=== PATIENT | male | born 1970 | race Caucasian/White ===

== ENCOUNTER 2020-03-21 10:35 | Observation (INO) | payer BC ==
[2020-03-21 11:15] LABS: Absolute Lymphocytes (CBC) 3.1 K/uL (0.7-4.9); Basophils % 0.6 % (0-1.3); Hematocrit 46.5 % (39.6-49.0); Lymphocytes % 39.9 % (15.3-44.8); MPV 8.8 fL (7.6-11.3); RBC Red Blood Cell Count 5.18 M/uL (4.33-5.43)
[2020-03-21 11:31] LABS: ALT/SGPT 50 U/L (12-78); AST/SGOT 34 U/L (15-37); Albumin 4.1 g/dL (3.4-5.0); Alkaline Phosphatase 103 U/L (45-117); BUN Blood Urea Nitrogen 19 mg/dL (7-18); Bicarbonate 24 mmol/L (21-32); Bilirubin Direct 0.2 mg/dL (0-0.2); Bilirubin Total 0.5 mg/dL (0.2-1.0); Glucose Level 93 mg/dL (74-106); Lipase 75 U/L (73-393); Potassium 4.1 mmol/L (3.5-5.1); Protein, Total 8.4 g/dL (6.4-8.2); Sodium Level 141 mmol/L (136-145); Troponin (Emerg Dept Use Only) < 0.02 ng/mL (0.0-0.045)
[2020-03-21] MEDS ORDERED: ASPIRIN 81 MG CHEWABLE TABLET ONE (11:33)
--- NOTE | 2020-03-21 11:41 | RAD REPORT ---
EXAM DESCRIPTION: Krystle Single View03/21/2020 11:21 am CLINICAL HISTORY: Chest pain COMPARISON: November 2019 FINDINGS: The lungs appear clear of acute infiltrate. The heart is normal size IMPRESSION: No acute abnormalities displayed
--- NOTE | 2020-03-21 12:21 | ER ---
Nurse's Notes [facility] Name: Toby Murphy Age: 49 yrs Sex: Male : 1970 Arrival Date: 03/21/2020 Time: 10:38 Bed 5 Private MD: Gil Drake Diagnosis: Essential (primary) hypertension;Other chest pain;Pure hypercholesterolemia Presentation: 03/21 10:41 Chief complaint: Substernal chest pain that woke him from sleep 3 hours ago. Pain hb radiates to upper back. Denies SOB/nausea/cough. Coronavirus screen: Proceed with normal triage. Ebola Screen: No symptoms or risks identified at this time. Initial Sepsis Screen: Does the patient meet any 2 criteria? No. Patient's initial sepsis screen is negative. Does the patient have a suspected source of infection? No. Patient's initial sepsis screen is negative. Risk Assessment: Do you want to hurt yourself or someone else? Patient reports no desire to harm self or others. Onset of symptoms was March 21, 2020. 10:41 Method Of Arrival: Ambulatory hb 10:41 Acuity: LIVIA 3 hb Historical: - Allergies: 10:44 No Known Allergies; hb - Home Meds: 10:44 Crestor 10 mg Oral tab 1 tab once daily [Active]; lisinopril 20 mg Oral tab 1 tab once hb daily [Active]; Zoloft Oral [Active]; Dexilant oral oral [Active]; - PMHx: 10:44 GERD; High Cholesterol; Hypertension; hb - PSHx: 10:44 Cholecystectomy; HEART CATH; hb - Immunization history:: Adult Immunizations up to date. - Social history:: Smoking status: Patient denies any tobacco usage or history of. - Family history:: not pertinent. Screenin:45 Abuse screen: Denies threats or abuse. Denies injuries from another. Nutritional ph screening: No deficits noted. Tuberculosis screening: No symptoms or risk factors identified. Fall Risk None identified. Assessment: 11:06 General: Appears in no apparent distress. comfortable, well groomed, Behavior is calm, ph cooperative, appropriate for age, Denies fever, feeling ill. Pain: Complains of pain in mid-sternal area Pain radiates to back Pain currently is 4 out of 10 on a pain scale. Pain began "this morning". Neuro: Level of Consciousness is awake, alert, obeys commands, Oriented to person, place, time, situation. Cardiovascular: Reports chest pain, Denies fatigue, lightheadedness, nausea, palpitations, shortness of breath, Capillary refill < 3 seconds in bilateral fingers Patient's skin is warm and dry. Chest pain is located in substernal area radiates back. Respiratory: Airway is patent Respiratory effort is even, unlabored, Respiratory pattern is regular, symmetrical. GI: No signs and/or symptoms were reported involving the gastrointestinal system. Derm: Skin is intact, is healthy with good turgor, Skin is pink, warm \\T\\ dry. Musculoskeletal: Circulation, motion, and sensation intact. Range of motion: intact in all extremities. 12:00 Reassessment: Patient appears in no apparent distress at this time. Patient and/or ph family updated on plan of care and expected duration. Pain level reassessed. Patient is alert, oriented x 3, equal unlabored respirations, skin warm/dry/pink. 13:38 Reassessment: Patient appears in no apparent distress at this time. Patient and/or ph family updated on plan of care and expected duration. Pain level reassessed. Patient is alert, oriented x 3, equal unlabored respirations, skin warm/dry/pink. Vital Signs: 10:41 BP 135 / 77; Pulse 72; Resp 16; Temp 97.8; Pulse Ox 97% on R/A; Weight 108.86 kg; hb Height 6 ft. 4 in. (193.04 cm); Pain 6/10; 11:32 BP 117 / 85 LA Sitting; Pulse 74; ph 11:32 BP 121 / 83 RA Sitting; Pulse 72; ph 12:24 BP 125 / 84; Pulse 77; Resp 16 S; Pulse Ox 96% on R/A; em 13:41 BP 123 / 77; Pulse 66; Resp 18; Pulse Ox 98% on R/A; ph 10:41 Body Mass Index 29.21 (108.86 kg, 193.04 cm) hb ED Course: 10:38 Patient arrived in ED. mr 10:38 Gil Drake MD is Private Physician. mr 10:38 José Luis Whitlock MD is Attending Physician. forrest 10:43 Triage completed. hb 10:44 Arm band placed on. hb 10:45 Clara Mack RN is Primary Nurse. ph 10:45 Patient maintains SpO2 saturation greater than 95% on room air. ph 10:46 Patient has correct armband on for positive identification. Placed in gown. Bed in low ph position. Call light in reach. Side rails up X 1. monitor car operator on. Pulse ox on. NIBP on. Door closed. Noise minimized. Warm blanket given. 11:00 Initial lab(s) drawn, by dc, sent to lab. Inserted saline lock: 22 gauge in right hand, ph using aseptic technique. Missed attempt(s): 20 gauge in right antecubital area. Bleeding controlled, band aid applied, catheter tip intact. 11:08 No provider procedures requiring assistance completed. ph 11:21 XRAY Chest (1 view) In Process Unspecified. EDMS 11:54 EKG done, by ED staff, reviewed by José Luis Whitlock MD. [facility] 12:19 Saturnino Boyd DO is Hospitalizing Provider. forerst 12:20 called and left a message for Dr. Boyd the hospitalist to call Dr. Whitlock for patient admission consultation. Administered Medications: 11:34 Drug: Aspirin Chewable Tablet 324 mg Route: PO; ph 13:47 Drug: Lopressor (metoprolol TARTRATE) 50 mg Route: PO; ph 13:47 Drug: Lovenox 1 mg/kg Route: Sub-Q; Site: right lower abdomen; ph Outcome: 12:20 Decision to Hospitalize by Provider. forrest 14:14 Patient left the ED. ph Signatures: Dispatcher [employer] EDJosé Luis Waddell MD MD cha Rivera, Mary mr Munoz, Edgar, Clara Dale RN, RN RN Joi Buenrostro, Mercy Delgado RN [facility] Yasmine Tyler
--- NOTE | 2020-03-21 12:21 | EDPHYS ---
Physician Documentation [facility] Name: Toby Murphy Age: 49 yrs Sex: Male : 1970 Arrival Date: 03/21/2020 Time: 10:38 Bed 5 Private MD: Gil Drake ED Physician José Luis Whitlock HPI: 03/21 10:52 This 49 yrs old Male presents to ER via Ambulatory with complaints of Chest forrest Pain. 10:52 The patient or guardian reports chest pain that is located primarily in the substernal forrest area. Onset: 3 day(s) ago. The pain radiates to back. Associated signs and symptoms: The patient has no apparent associated signs or symptoms. The chest pain is described as dull, a heaviness. Modifying factors: The symptoms are alleviated by nothing. the symptoms are aggravated by nothing. Severity of pain: At its worst the pain was mild in the emergency department the pain is unchanged. The patient has experienced similar episodes in the past, a few times. Historical: - Allergies: 10:44 No Known Allergies; hb - Home Meds: 10:44 Crestor 10 mg Oral tab 1 tab once daily [Active]; lisinopril 20 mg Oral tab 1 tab once hb daily [Active]; Zoloft Oral [Active]; Dexilant oral oral [Active]; - PMHx: 10:44 GERD; High Cholesterol; Hypertension; hb - PSHx: 10:44 Cholecystectomy; HEART CATH; hb - Immunization history:: Adult Immunizations up to date. - Social history:: Smoking status: Patient denies any tobacco usage or history of. - Family history:: not pertinent. ROS: 10:52 Constitutional: Negative for fever, chills, and weight loss, Eyes: Negative for injury, forrest pain, redness, and discharge, ENT: Negative for injury, pain, and discharge, Neck: Negative for injury, pain, and swelling, Respiratory: Negative for shortness of breath, cough, wheezing, and pleuritic chest pain, Abdomen/GI: Negative for abdominal pain, nausea, vomiting, diarrhea, and constipation, : Negative for injury, bleeding, discharge, and swelling, MS/Extremity: Negative for injury and deformity, Skin: Negative for injury, rash, and discoloration, Neuro: Negative for headache, weakness, numbness, tingling, and seizure, Psych: Negative for depression, anxiety, suicide ideation, homicidal ideation, and hallucinations, Allergy/Immunology: Negative for hives, rash, and allergies, Endocrine: Negative for neck swelling, polydipsia, polyuria, polyphagia, and marked weight changes, Hematologic/Lymphatic: Negative for swollen nodes, abnormal bleeding, and unusual bruising. 10:52 Cardiovascular: Positive for chest pain, of the mid-sternal area. 10:52 MS/extremity: Negative for pain, swelling, tenderness. Exam: 10:52 Constitutional: This is a well developed, well nourished patient who is awake, alert, forrest and in no acute distress. Head/Face: Normocephalic, atraumatic. Eyes: Pupils equal round and reactive to light, extra-ocular motions intact. Lids and lashes normal. Conjunctiva and sclera are non-icteric and not injected. Cornea within normal limits. Periorbital areas with no swelling, redness, or edema. ENT: Nares patent. No nasal discharge, no septal abnormalities noted. Tympanic membranes are normal and external auditory canals are clear. Oropharynx with no redness, swelling, or masses, exudates, or evidence of obstruction, uvula midline. Mucous membranes moist. Neck: Trachea midline, no thyromegaly or masses palpated, and no cervical lymphadenopathy. Supple, full range of motion without nuchal rigidity, or vertebral point tenderness. No Meningismus. Chest/axilla: Normal chest wall appearance and motion. Nontender with no deformity. No lesions are appreciated. Cardiovascular: Regular rate and rhythm with a normal S1 and S2. No gallops, murmurs, or rubs. Normal PMI, no JVD. No pulse deficits. Respiratory: Lungs have equal breath sounds bilaterally, clear to auscultation and percussion. No rales, rhonchi or wheezes noted. No increased work of breathing, no retractions or nasal flaring. Abdomen/GI: Soft, non-tender, with normal bowel sounds. No distension or tympany. No guarding or rebound. No evidence of tenderness throughout. Back: No spinal tenderness. No costovertebral tenderness. Full range of motion. Male : Normal genitalia with no discharge or lesions. Skin: Warm, dry with normal turgor. Normal color with no rashes, no lesions, and no evidence of cellulitis. MS/ Extremity: Pulses equal, no cyanosis. Neurovascular intact. Full, normal range of motion. Neuro: Awake and alert, GCS 15, oriented to person, place, time, and situation. Cranial nerves II-XII grossly intact. Motor strength 5/5 in all extremities. Sensory grossly intact. Cerebellar exam normal. Normal gait. Psych: Awake, alert, with orientation to person, place and time. Behavior, mood, and affect are within normal limits. Vital Signs: 10:41 BP 135 / 77; Pulse 72; Resp 16; Temp 97.8; Pulse Ox 97% on R/A; Weight 108.86 kg; hb Height 6 ft. 4 in. (193.04 cm); Pain 6/10; 11:32 BP 117 / 85 LA Sitting; Pulse 74; ph 11:32 BP 121 / 83 RA Sitting; Pulse 72; ph 12:24 BP 125 / 84; Pulse 77; Resp 16 S; Pulse Ox 96% on R/A; em 13:41 BP 123 / 77; Pulse 66; Resp 18; Pulse Ox 98% on R/A; ph 10:41 Body Mass Index 29.21 (108.86 kg, 193.04 cm) hb MDM: 10:45 Patient medically screened. [facility] 10:54 Data reviewed: vital signs, nurses notes, lab test result(s), EKG, radiologic studies, [facility] plain films. 12:20 Differential diagnosis: coronary artery disease chest wall pain, esophagitis, forrest gastroesophageal reflux disease (GERD), hiatal hernia, unstable angina. HEART Score: History: Moderately Suspicious (1), ECG: Normal (0), Age: > 45 and < 65 years (1), Risk Factors: 1 or 2 risk factors (1), Troponin: < or = 1 x Normal Limit (0), Total Score = 3. The patient was given aspirin in the Emergency Department. MELISSA Risk Score: 1 - Three or more CAD risk factors, 1 - Recent [<24hrs] Severe Angina, TOTAL SCORE = 2. 12:22 ED course: chest pain, to back, indigestion, hx high cholesterol, htn, family history. [facility] cath 6 yrs ago neg, clean. 03/21 10:52 Order name: Basic Metabolic Panel; Complete Time: 12:15 [facility] 03/21 10:52 Order name: CBC with Diff; Complete Time: 12:15 03/21 10:52 Order name: LFT's; Complete Time: 12:15 03/21 10:52 Order name: Magnesium; Complete Time: 12:15 [facility] 03/21 10:52 Order name: Troponin (emerg Dept Use Only); Complete Time: 12:15 [facility] 03/21 10:52 Order name: Lipase; Complete Time: 12:15 03/21 10:52 Order name: XRAY Chest (1 view); Complete Time: 12:15 [facility] 03/21 10:52 Order name: EKG; Complete Time: 10:52 [facility] 03/21 10:52 Order name: Cardiac monitoring; Complete Time: 11:03/21 10:52 Order name: EKG - Nurse/Tech; Complete Time: 11: [facility] 03/21 10:52 Order name: IV Saline Lock; Complete Time: 11: [facility] 03/21 10:52 Order name: Labs collected and sent; Complete Time: 11:03/21 10:52 Order name: O2 Per Protocol; Complete Time: 11: [facility] 03/21 10:52 Order name: O2 Sat Monitoring; Complete Time: 11: [facility] 03/21 10:52 Order name: Bilateral blood pressure: chest pain to back, 5:10; Complete Time: 11:32 [facility] Administered Medications: 11:34 Drug: Aspirin Chewable Tablet 324 mg Route: PO; ph 13:47 Drug: Lopressor (metoprolol TARTRATE) 50 mg Route: PO; ph 13:47 Drug: Lovenox 1 mg/kg Route: Sub-Q; Site: right lower abdomen; ph Disposition: 03/21/20 12:20 Hospitalization ordered by Saturnino Boyd for Observation. Preliminary diagnosis are Essential (primary) hypertension, Other chest pain, Pure hypercholesterolemia. - Bed requested for Telemetry/MedSurg (observation). - Status is Observation. ph - Condition is Stable. - Problem is new. - Symptoms have improved. Signatures: Dispatcher [employer] EDMS José Luis Whitlock MD MD cha Hall, Patricia, RN RN Joi Buenrostro, RN RN Yasmine Tyler Corrections: (The following items were deleted from the chart) 12:20 12:20 Hospitalization Ordered by Saturnino Boyd DO for Observation. Preliminary eb diagnosis is Essential (primary) hypertension; Other chest pain; Pure hypercholesterolemia. Bed requested for Telemetry/MedSurg (observation). Status is Observation. Condition is Stable. Problem is new. Symptoms have improved. forrest 13:34 12:20 03/21/2020 12:20 Hospitalization Ordered by Saturnino Boyd DO for Observation. eb Preliminary diagnosis is Essential (primary) hypertension; Other chest pain; Pure hypercholesterolemia. Bed requested for Telemetry/MedSurg (observation). Status is Observation. Condition is Stable. Problem is new. Symptoms have improved. eb 14:14 13:34 03/21/2020 12:20 Hospitalization Ordered by Saturnino Boyd DO for Observation. ph Preliminary diagnosis is Essential (primary) hypertension; Other chest pain; Pure hypercholesterolemia. Bed requested for Telemetry/MedSurg (observation). Status is Observation. Condition is Stable. Problem is new. Symptoms have improved. eb
[2020-03-21] MEDS ORDERED: METOPROLOL TAR 50 MG TAB ONE (13:00)
[2020-03-21] MEDS ORDERED: ENOXAPARIN 100 MG/ML SYR SQ ONE (13:01)
--- NOTE | 2020-03-21 13:17 | P.HP ---
Certification for Inpatient Patient admitted to: Observation With expected LOS: <2 Midnights Patient will require the following post-hospital care: None Practitioner: I am a practitioner with admitting privileges, knowledge of patient current condition, hospital course, and medical plan of care. Services: Services provided to patient in accordance with Admission requirements found in Title 42 Section 412.3 of the Code of Federal Regulations Patient History Date of Service: 03/21/20 Primary Care Provider: Dr. Drake; Cardiology-Dr. Ruiz Reason for admission: Chest pain History of Present Illness: 49-year-old male with history of hypertension, hyperlipidemia, GERD and anxiety. Patient has been reporting substernal chest pain since . Pain has come and gone. He reports the chest pain to the center of the chest. It has woken him up the last 2 days. He reports that the pain is a strange feeling. No radiation pain noted. He denies any nausea, vomiting, shortness of breath or headaches. Patient reports that he recently went on a trip to the [place]. He has been casting a net in the water. Patient with previous heart catheterization in 2013 which was unremarkable. Patient sees cardiology as an outpatient. In the ER patient was evaluated. All signs stable. Cardiac enzymes unremarkable. EKG unremarkable. Chest x-ray unremarkable. CBC and CMP also unremarkable. Patient admitted for observation. When I saw the patient ER, patient appeared stable. Patient with pectus excavating. Patient denies any tobacco use. He does drink alcohol and uses caffeine. Allergies No Known Drug Allergies Allergy (Verified 09/15/15 22:25) Unknown No Known Allergies Allergy (Uncoded 12/16/16 15:31) Unknown Home medications list reviewed: Yes Home Medications: Esomeprazole Mag Trihydrate [Nexium] 20 mg PO DAILY 09/15/15 Rosuvastatin [Crestor] 10 mg PO DAILY 09/15/15 lisinopriL [Prinivil] 20 mg PO DAILY 09/15/15 - Past Medical/Surgical History Diabetic: No -: Hyperlipidemia -: Hypertension -: Pectus excavatum -: GERD -: Alcohol use -: Cholecystectomy Psychosocial/ Personal History: Patient is . 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 - Family History Father -: Heart disease Brother -: Heart disease Mother -: Cancer - Social History Smoking Status: Never smoker Alcohol use: Yes CD- Drugs: No Caffeine use: Yes Place of Residence: Home Review of Systems General: As per HPI Eyes: Unremarkable ENT: Unremarkable Respiratory: Unremarkable Cardiovascular: Chest Pain, As per HPI Gastrointestinal: Unremarkable Genitourinary: Unremarkable Musculoskeletal: Unremarkable Integumentary: Unremarkable Neurological: Unremarkable Lymphatics: Unremarkable Physical Examination - Physical Exam General: Alert, In no apparent distress, Oriented x3, Cooperative HEENT: Atraumatic, Normocephalic, Mucous membr. moist/pink Neck: Supple Respiratory: Clear to auscultation bilaterally, Normal air movement, Other (Patient with pectus excavatum) Cardiovascular: Normal pulses, Regular rate/rhythm Gastrointestinal: Normal bowel sounds, No tenderness, No masses, No rebound, No guarding Musculoskeletal: No erythema, No tenderness, No warmth Integumentary: No tenderness/swelling, No erythema, No warmth, No cyanosis Neurological: Normal speech, Normal strength at 5/5 x4 extr, Normal tone, Normal affect - Studies Laboratory Data (last 24 hrs) 03/21/20 11:00: WBC 7.8, Hgb 15.6, Hct 46.5, Plt Count 190 03/21/20 11:00: Sodium 141, Potassium 4.1, BUN 19 H, Creatinine 0.97, Glucose 93, Magnesium 2.0, Total Bilirubin 0.5, AST 34, ALT 50, Alkaline Phosphatase 103, Lipase 75 Assessment and Plan - Plan Impression: Chest pain likely musculoskeletal with pectus excavatum Hypertension Hyperlipidemia GERD Alcohol use Plan: Chest pain likely musculoskeletal with pectus excavatum: Patient will be admitted for observation. Will continue chest pain rule-out. Continue to monitor cardiac enzymes and telemetry. Case discussed with cardiology. If cardiac workup/cardiac enzymes unremarkable, patient can be seen in cardiology office on Monday. Patient with prior heart catheterization in 2013 that was unremarkable. Suspect chest pain to be musculoskeletal related to pectus excavatum. Hypertension: Continue home medication lisinopril 20 mg daily. Hyperlipidemia: Continue Crestor 10 mg daily. GERD: Will provide PPI. Patient uses medication at home. Alcohol use: Will educate on alcohol reduction. Discharge Plan: Home Plan to discharge in: 24 Hours - Advance Directives Does patient have a Living Will: Yes Does patient have a Durable POA for Healthcare: No - Code Status/Comfort Care Code Status Assessed: Yes (Patient is full code) Time Spent Managing Pts Care (In Minutes): 55
[2020-03-21] MEDS ORDERED: ACETAMINOPHEN 500 MG TAB PO PRN (14:08)
[2020-03-21] MEDS ORDERED: ONDANSETRON 4 MG/2 ML VIAL IV PRN (14:08)
[2020-03-21] MEDS ORDERED: TRAMADOL HCL 50 MG TAB PO PRN (14:08)
[2020-03-21 14:23] VITALS: BMI 29.2
[2020-03-21 18:17] LABS: Creatine Phosphokinase 188 U/L (39-308); Troponin I < 0.02 ng/mL (0.0-0.045)
[2020-03-21] MEDS ORDERED: ROSUVASTATIN 10 MG TAB PO SCH (21:00)
[2020-03-22 02:32] LABS: CKMB Creatine Kinase MB 1.4 ng/mL (0.3-3.6); Creatine Phosphokinase 166 U/L (39-308); Troponin I < 0.02 ng/mL (0.0-0.045)
--- NOTE | 2020-03-22 06:50 | EKG ---
Test Date: 2020-03-21 Test Time: 11:06:53 [employer]nament[employer]: CHET MEASUREMENT RESULTS: Intervals: Rate: 71 [place]: 160 QRSD: 100 QT: 402 QTc: 436 [place]: P: 49 [place]: 160 QRS: 70 T: 63 INTERPRETIVE STATEMENTS: Normal sinus rhythm Normal ECG Compared to ECG 12/09/2016 23:09:30 No significant changes Electronically Signed On 03-22-20 06:48:40 CDT by Jono Ruiz
[2020-03-22] MEDS ORDERED: PANTOPRAZOLE 40MG TABLET PO SCH (07:30)
--- NOTE | 2020-03-22 08:20 | P.DS ---
Discharge Date: 03/22/20 Primary Care Provider: Dr. Drake; Cardiology-Dr. Ruiz Disposition: ROUTINE DISCHARGE Discharge Condition: GOOD Reason for Admission: Chest pain Brief History of Present Illness: Patient is a 49-year-old gentleman was admitted to the hospital with chest discomfort. Patient had pectus excavatum. Patient had been casted and had throughout the day out on the [place] other day. He started having some chest discomfort afterwards. Patient has multiple comorbidities and will do further evaluation. Patient will be admitted to be ruled out for acute coronary syndrome. Hospital Course: Patient's troponins and EKG were negative. Patient will be discharged for outpatient follow with Cardiology on Monday morning. Patient is to return to the ER if chest pain worsens. Vital Signs/Physical Exam: Temp Pulse Resp BP Pulse Ox 97.2 F 69 17 98/54 L 95 03/22/20 04:00 03/22/20 04:00 03/22/20 04:00 03/22/20 04:00 03/22/20 04:00 General: Alert, In no apparent distress, Oriented x3 Laboratory Data at Discharge: WBC 7.8 K/uL (4.3-10.9) 03/21/20 11:00 Hgb 15.6 g/dL (13.6-17.9) 03/21/20 11:00 Hct 46.5 % (39.6-49.0) 03/21/20 11:00 Plt Count 190 K/uL (152-406) 03/21/20 11:00 Sodium 141 mmol/L (136-145) 03/21/20 11:00 Potassium 4.1 mmol/L (3.5-5.1) 03/21/20 11:00 BUN 19 mg/dL (7-18) H 03/21/20 11:00 Creatinine 0.97 mg/dL (0.55-1.3) 03/21/20 11:00 Glucose 93 mg/dL (74-106) 03/21/20 11:00 Magnesium 2.0 mg/dL (1.8-2.4) 03/21/20 11:00 Total Bilirubin 0.5 mg/dL (0.2-1.0) 03/21/20 11:00 AST 34 U/L (15-37) 03/21/20 11:00 ALT 50 U/L (12-78) 03/21/20 11:00 Alkaline Phosphatase 103 U/L (45-117) 03/21/20 11:00 Troponin I < 0.02 ng/mL (0.0-0.045) 03/22/20 01:55 Triglycerides 91 mg/dL (<150) 03/22/20 01:55 Cholesterol 155 mg/dL (<200) 03/22/20 01:55 HDL Cholesterol 61 mg/dL (40-60) H 03/22/20 01:55 Cholesterol/HDL Ratio 2.54 03/22/20 01:55 Lipase 75 U/L (73-393) 03/21/20 11:00 Home Medications: Dexlansoprazole [Dexilant] 60 mg PO DAILY 03/21/20 Lisinopril [Zestril] 20 mg PO DAILY 03/21/20 Rosuvastatin Calcium [Crestor] 10 mg PO DAILY 03/21/20 Sertraline [Zoloft*] 25 mg PO DAILY 03/21/20 Aspirin [Aspirin EC 81 MG] 81 mg PO DAILY #30 tablet. 03/22/20 New Medications: Aspirin [Aspirin EC 81 MG] 81 mg PO DAILY #30 tablet. Patient Discharge Instructions: OK TO DC IV AND DC HOME. FOLLOW-UP WITH PRIMARY CARE PROVIDER IN 1-2 WEEKS. FOLLOW-UP WITH CARDIOLOGY IN 1-2 WEEKS. RETURN TO THE ER IF symptoms worsen. CALL or TEXT DR. FAYE AT [phone] IF ANY QUESTIONS REGARDING HOSPITAL STAY. PLEASE CALL THE FLOOR AT [phone] IF ANY MEDICATION OR NURSING QUESTIONS. Diet: AHA Activity: Fall precautions Time spent managing pt's care (in minutes): 20
[2020-03-22 08:48] VITALS: O2SAT 95
[2020-03-22 09:00] VITALS: BP 107/60; TEMP 97
[2020-03-22] MEDS ORDERED: ASPIRIN EC 81 MG TAB PO SCH (09:00)
[2020-03-22] MEDS ORDERED: SERTRALINE HCL 50 MG TAB PO SCH (09:00)
[2020-03-22] MEDS ORDERED: ENOXAPARIN 40 MG/0.4 ML SQ SCH (09:00)
[2020-03-22] MEDS ORDERED: lisinopriL 20 MG TAB PO SCH (09:00)
--- NOTE | 2020-03-25 06:52 | EKG ---
Test Date: 2020-03-21 Test Time: 16:37:19 Business Risk Consultant: MEASUREMENT RESULTS: Intervals: Rate: 65 [place]: 148 QRSD: 100 QT: 416 QTc: 432 [place] P: 32 [place]: 148 QRS: 58 T: 55 INTERPRETIVE STATEMENTS: Normal sinus rhythm Normal ECG Compared to ECG 03/21/2020 11:06:53 No significant changes Electronically Signed On 03-25-20 06:49:32 CDT by Jono Ruiz
== END 2020-03-22 12:36 | disposition home or self-care (01) ==
LOC: ER 10:35 → ERHOLD 13:08 → 2ND 13:59
PROVIDERS: ADMIT Family Medicine; ATTEND Family Medicine
DX: R07.89 Other chest pain (principal); Q67.6 Pectus excavatum; I10 Essential (primary) hypertension; E78.5 Hyperlipidemia, unspecified; K21.9 Gastro-esophageal reflux disease without esophagitis; F10.10 Alcohol abuse, uncomplicated
CPT/HCPCS: 36415; 71045; 80048; 80061; 80076; 82550; 82553; 83690; 83735; 84484; 85025; 93005; 96372; 99285; G0378; J1650